=== PATIENT | female | born 1955 | race Caucasian/White ===

== ENCOUNTER 2019-12-24 08:35 | Emergency (ER) | payer BC ==
[~2019-12-24] VITALS: Ht 160 cm; Wt 78.3 kg
[2019-12-24] MEDS ORDERED: VALS80TA (08:45)
[2019-12-24] MEDS ORDERED: HYDR-3713 (08:45)
[2019-12-24] MEDS ORDERED: ZOLP5TAB (08:45)
[2019-12-24] MEDS ORDERED: OMEP-218 (08:45)
[2019-12-24 09:24] LABS: BASO # 0.1 10^3/uL (0.0-0.2); BASO % 0.9 % (0.0-1.0); EOS # 0.1 10^3/uL (0.0-0.5); EOS % 2.5 % (0.0-3.0); HEMATOCRIT 40.4 % (36.0-47.0); HEMOGLOBIN 13.2 g/dl (12.0-15.5); LYMPH # 1.8 10^3/uL (1.5-5.0); LYMPH % 32.2 % (24.0-44.0); MEAN CORPUSCULAR HEMOGLOBIN 32.4 pg (27.0-33.0); MEAN CORPUSCULAR HGB CONC 32.7 g/dl (32.0-36.5); MEAN CORPUSCULAR VOLUME 99.3 fl (80.0-96.0); MONO # 0.5 10^3/uL (0.0-0.8); MONO % 8.2 % (0.0-5.0); NEUTROPHILS # 3.2 10^3/uL (1.5-8.5); PLATELET COUNT, AUTOMATED 265 10^3/uL (150-450); RED BLOOD COUNT 4.07 10^6/uL (4.00-5.40); WHITE BLOOD COUNT 5.6 10^3/uL (4.0-10.0)
[2019-12-24 09:31] LABS: INR 0.98; PROTHROMBIN TIME 12.7 SECONDS (11.8-14.0)
--- NOTE | 2019-12-24 09:37 | REP ---
CHEST, SINGLE VIEW: There is no evidence of acute infiltrate. No pleural effusion is seen. The heart is normal in size. The mediastinal silhouette is unremarkable. The visualized osseous structures are intact. IMPRESSION: No acute pulmonary disease. Electronically Signed by Earl Aguilar MD 12/24/2019 12:51 P
[2019-12-24 09:46] LABS: ALBUMIN 4.4 GM/DL (3.2-5.2); ALT/SGPT 35 U/L (12-78); BILIRUBIN,DIRECT 0.1 MG/DL (0.0-0.2); BILIRUBIN,TOTAL 0.5 MG/DL (0.2-1.0); CK-MB VALUE MASS 1.4 NG/ML (<3.6); CPK CREATINE PHOSPHOKINASE 140 U/L (26-192); LIPASE 81 U/L (73-393); TOTAL PROTEIN 7.4 GM/DL (6.4-8.2); TROPONIN I < 0.02 NG/ML (< 0.10)
[2019-12-24 10:30] LABS: MAGNESIUM LEVEL 1.9 MG/DL (1.8-2.4)
--- NOTE | 2019-12-24 13:30 | ECGEPIP ---
[facility] - ED Test Date: 2019-12-24 Pat Name: SUDHA MAGANA Department: Room: - Gender: Female [employer] Work[employer]: [place] : 1955 Requested By: MIKE Tran Order Number: [id number] Reading MD: Esthela Saarvia Measurements Intervals [place] Rate: 83 P: 20 OH: 155 QRS: 5 QRSD: 105 T: 14 QT: 367 QTc: 432 Interpretive Statements SINUS RHYTHM NO PRIOR Electronically Signed on 12-24-2019 13:30:03 EST by Esthela Saravia
[2019-12-24] MEDS ORDERED: Holter Monitor (13:48)
[2019-12-24 14:05] VITALS: BP 164/94
== END 2019-12-24 14:15 | disposition home or self-care (01) ==
LOC: M ED 08:35
DX: R00.2 Palpitations (principal); I10 Essential (primary) hypertension; E78.5 Hyperlipidemia, unspecified; Z87.442 Personal history of urinary calculi; Z88.0 Allergy status to penicillin; Z79.899 Other long term (current) drug therapy

== ENCOUNTER → 2019-12-24 | Outpatient (CLI) | payer BC ==
[~2019-12-24] MED LIST: HYDR-3713; Holter Monitor; OMEP-218; VALS80TA; ZOLP5TAB
--- NOTE | 2019-12-26 22:45 | HOLTMON ---
[facility] Test Date: 2019-12-24 Pat Name: SUDHA MAGANA Department: Room: - Gender: Female [place] Machine Operator: Desirae Roa/BRET QUILES : 1955 Requested By: MIKE Tran Order Number: [id number] Reading MD: Cristhian Rothman Interpretive Statements Normal sinus rhythm with a maximum heart of 131 bpm noted at 12:21:40 PM and a minimum rate of 71 bpm at 6:56:00 AM. Average heart rat was 91 bpm. No activity reported with the maximum heart rate. No pause. Occasional premature isolated PACs. No supraventricular run. Rare premature isolated PVCs. No ventricular run. Symptoms: Palpitations. No associated arrhythmias. Electronically Signed on 12-26-2019 22:45:22 EST by Cristhian Rothman
== END ==
LOC: M EKG 14:24
PROVIDERS: ATTEND Internal Medicine
DX: R00.2 Palpitations (principal)

== ENCOUNTER → 2020-10-25 | Outpatient (CLI) | payer MEDICARE, OTHER | LOC: M LABSMTC 09:49 | DX: Z20.828 Contact with and (suspected) exposure to other viral communicable diseases (principal) ==

== ENCOUNTER → 2020-12-19 | Outpatient (CLI) | payer SELFPAY | LOC: M LABSMTC 10:09 | PROVIDERS: ATTEND Pediatrics | DX: Z20.822 Contact with and (suspected) exposure to COVID-19 (principal) ==

== ENCOUNTER → 2021-06-07 | Outpatient (CLI) | payer MEDICARE, OTHER ==
[~2021-06-07] MED LIST changes: +AZIT500T5; -OMEP-218; +OMEP-218 PO; +ROSU10TA6 PO; -VALS80TA; +VALS80TA PO; -ZOLP5TAB; +ZOLP5TAB PO
== END ==
LOC: M LABSMTC 11:26
PROVIDERS: ATTEND Anesthesiology
DX: Z01.818 Encounter for other preprocedural examination (principal); Z20.822 Contact with and (suspected) exposure to COVID-19

== ENCOUNTER 2021-06-12 11:55 | Day surgery (SDC) | payer MEDICARE ==
[~2021-06-12] VITALS: Ht 160 cm; Wt 70.3 kg
[~2021-06-12 11:55] MED LIST changes: +NS 1,000 ML IV ONE
[2021-06-12] MEDS ORDERED: fentaNYL 100 MCG/2 ML INJECTION (J3010) As Ordered ONE (13:38)
--- NOTE | 2021-06-12 14:24 | ROOR ---
Patient Name: Annabelle No Procedure Date: 06/12/2021 2:10 PM Date of : 1955 Age: 66 Room: [facility] Gender: Female Note Status: Finalized Procedure: Upper GI endoscopy Indications: Heartburn Providers: Ac Florentino MD Referring MD: Chayito BOCANEGRA MD Requesting Provider: Medicines: Monitored Anesthesia Care Complications: No immediate complications. Procedure: Pre-Anesthesia Assessment: - The heart rate, respiratory rate, oxygen saturations, blood pressure, adequacy of pulmonary ventilation, and response to care were monitored throughout the procedure. The Endoscope was introduced through the mouth, and advanced to the second part of duodenum. The upper GI endoscopy was accomplished without difficulty. The patient tolerated the procedure well. Findings: A single 4 mm semi-sessile polyp with no stigmata of recent bleeding was found in the cardia. The polyp was removed with a jumbo cold forceps. Resection and retrieval were complete. The exam of the stomach was otherwise normal. The examined esophagus was normal. The examined duodenum was normal. Impression: - A single gastric polyp. Resected and retrieved. - Otherwise normal stomach. - Normal esophagus. - Normal examined duodenum. Recommendation: - Await pathology results. - Telephone endoscopist for pathology results in 2 weeks. Procedure Code(s): --- Professional --- 78983, Esophagogastroduodenoscopy, flexible, transoral; with biopsy, single or multiple Diagnosis Code(s): --- Professional --- R12, Heartburn K31.7, Polyp of stomach and duodenum CPT copyright 2019 [employer]. All rights reserved. The codes documented in this report are preliminary and upon policyholder information clerk review may be revised to meet current compliance requirements. Ac Florentino MD Ac Florentino MD 06/12/2021 2:23:36 PM Electronically signed by Ac Florentino MD Number of Addenda: 0 Note Initiated On: 06/12/2021 2:10 PM Estimated Blood Loss: Estimated blood loss: none.
[2021-06-12] MEDS ORDERED: LIDOCAINE 2% 100MG/5ML SDV (FOR ANES.) As Ordered ONE (14:25)
[2021-06-12] MEDS ORDERED: propofoL 200 MG/20 ML VIAL As Ordered ONE (14:25)
[2021-06-12] MEDS ORDERED: GLYCOPYRROLATE INJ 0.2 MG/ML 2 ML VIAL As Ordered ONE (14:29)
--- NOTE | 2021-06-12 14:47 | ROOR ---
Patient Name: Annabelle No Procedure Date: 06/12/2021 2:11 PM Date of : 1955 Age: 66 Room: [facility] Gender: Female Note Status: Finalized Procedure: Colonoscopy Indications: High risk colon cancer surveillance: Personal history of colonic polyps Providers: Ac Florentino MD Referring MD: Chayito BOCANEGRA MD Requesting Provider: Medicines: Monitored Anesthesia Care Complications: No immediate complications. Procedure: Pre-Anesthesia Assessment: - The heart rate, respiratory rate, oxygen saturations, blood pressure, adequacy of pulmonary ventilation, and response to care were monitored throughout the procedure. The Colonoscope was introduced through the anus and advanced to the terminal ileum, with identification of the appendiceal orifice and IC valve. The colonoscopy was somewhat difficult due to a redundant colon. Successful completion of the procedure was aided by applying abdominal pressure. The patient tolerated the procedure well. The quality of the bowel preparation was good. Findings: The perianal and digital rectal examinations were normal. A 5 mm polyp was found in the splenic flexure. The polyp was sessile. The polyp was removed with a cold snare. Resection and retrieval were complete. Multiple small and large-mouthed diverticula were found in the sigmoid colon, transverse colon and ascending colon. The exam was otherwise without abnormality on direct and retroflexion views. Impression: - One 5 mm polyp at the splenic flexure, removed with a cold snare. Resected and retrieved. - Diverticulosis in the sigmoid colon, in the transverse colon and in the ascending colon. - The examination was otherwise normal on direct and retroflexion views. Recommendation: - Repeat colonoscopy in 5 years for surveillance. Procedure Code(s): --- Professional --- 51563, Colonoscopy, flexible; with removal of tumor(s), polyp(s), or other lesion(s) by snare technique Diagnosis Code(s): --- Professional --- K57.30, Diverticulosis of large intestine without perforation or abscess without bleeding K63.5, Polyp of colon Z86.010, Personal history of colonic polyps CPT copyright 2019 [employer]. All rights reserved. The codes documented in this report are preliminary and upon network coordinator review may be revised to meet current compliance requirements. Ac Florentino MD Ac Florentino MD 06/12/2021 2:47:09 PM Electronically signed by Ac Florentino MD Number of Addenda: 0 Note Initiated On: 06/12/2021 2:11 PM Estimated Blood Loss: Estimated blood loss: none.
[2021-06-12 15:10] VITALS: BP 137/85
== END 2021-06-12 15:20 | disposition home or self-care (01) ==
LOC: M OPP 11:55
PROVIDERS: ATTEND Internal Medicine Gastroenterology
DX: Z12.11 Encounter for screening for malignant neoplasm of colon (principal); Z86.010 Personal history of colon polyps; D12.3 Benign neoplasm of transverse colon; K57.30 Diverticulosis of large intestine without perforation or abscess without bleeding; K31.7 Polyp of stomach and duodenum; R12 Heartburn; Z79.899 Other long term (current) drug therapy; Z88.0 Allergy status to penicillin
CPT/HCPCS: 43239; 45385; 88305; J3010

== ENCOUNTER → 2021-07-12 | Outpatient (REF) | payer MEDICARE ==
[~2021-07-12] MED LIST changes: -NS 1,000 ML IV ONE
[2021-07-12 12:26] LABS: C REACTIVE PROTEIN QUANTITATIV < 0.30 MG/DL (0.00-0.30); TOTAL PROTEIN 6.8 GM/DL (6.4-8.2)
[2021-07-12 12:33] LABS: VITAMIN B12 LEVEL 275 PG/ML (247-911)
[2021-07-13 16:12] LABS: Lyme Disease IgG/IgM Antibodie <0.91 ISR (0.00-0.90); Lyme Disease IgM Ab Quantitati <0.80 index (0.00-0.79)
== END ==
LOC: M LAB REF 11:08
PROVIDERS: ATTEND Internal Medicine
DX: G60.9 Hereditary and idiopathic neuropathy, unspecified (principal)

== ENCOUNTER → 2021-07-27 | Outpatient (REF) | payer MEDICARE, OTHER ==
[2021-07-31 13:10] LABS: ANTINUCLEAR ANTIBODIES DIRECT Negative (Negative)
== END ==
LOC: M LAB REF 16:13
PROVIDERS: ATTEND Internal Medicine
DX: G62.9 Polyneuropathy, unspecified (principal)

== ENCOUNTER → 2022-03-11 | Outpatient (CLI) | payer MEDICARE ==
[~2022-03-11] MED LIST changes: +OMEP-173 PO; -OMEP-218 PO
== END ==
LOC: M LABSMTC 11:14
DX: Z42.1 Encounter for breast reconstruction following mastectomy (principal)

== ENCOUNTER → 2022-10-11 | Outpatient (REF) | payer MEDICARE ==
[~2022-10-11] MED LIST changes: +ANAS1TAB2; +HYDR-3490; +HYDR-3713 PO; +MELO10CA2 PO; +NITR100C2
== END ==
LOC: M LAB REF 12:24
PROVIDERS: ATTEND Internal Medicine
DX: N39.0 Urinary tract infection, site not specified (principal)

== ENCOUNTER 2022-10-15 18:24 | Emergency (ER) | payer MEDICARE ==
[~2022-10-15] VITALS: Ht 157.5 cm; Wt 70.5 kg
[2022-10-15 18:24] VITALS: BP 160/90
[~2022-10-15 18:24] MED LIST changes: -ANAS1TAB2; -HYDR-3490; -HYDR-3713 PO; -MELO10CA2 PO; -NITR100C2
[2022-10-15] MEDS ORDERED: NITR100C2 (18:31)
[2022-10-15] MEDS ORDERED: ANAS1TAB2 (18:31)
[2022-10-15] MEDS ORDERED: HYDR-3490 (18:31)
[2022-10-15] MEDS ORDERED: NORCO, ANEXSIA 5/325MG TABLET (HYDROcodone/ACETAMINOPHEN) PO ONE (22:05)
[2022-10-15] MEDS ORDERED: MELO10CA2 PO (22:10)
[2022-10-15] MEDS ORDERED: HYDR-3713 PO (22:10)
== END 2022-10-15 22:25 | disposition home or self-care (01) ==
LOC: M ED 18:24
DX: M23.92 Unspecified internal derangement of left knee (principal); I10 Essential (primary) hypertension; K21.9 Gastro-esophageal reflux disease without esophagitis; Z79.811 Long term (current) use of aromatase inhibitors; Z79.899 Other long term (current) drug therapy; Z88.0 Allergy status to penicillin; Z98.890 Other specified postprocedural states; Z87.442 Personal history of urinary calculi; Z86.39 Personal history of other endocrine, nutritional and metabolic disease; Z87.39 Personal history of other diseases of the musculoskeletal system and connective tissue

== ENCOUNTER → 2022-11-22 | Outpatient (REF) | payer MEDICARE ==
[~2022-11-22] MED LIST changes: +ANAS1TAB2; +HYDR-3490; +HYDR-3713 PO; +MELO10CA2 PO; +NITR100C2
== END ==
LOC: M LAB REF 16:10
PROVIDERS: ATTEND Internal Medicine
DX: N39.0 Urinary tract infection, site not specified (principal)

== ENCOUNTER → 2022-12-16 | Outpatient (CLI) | payer MEDICARE ==
[2022-12-16 11:03] LABS: CORTISOL AM 1.4 UG/DL (4.3-22.4)
[2022-12-16 11:06] LABS: THYROID STIMULATING HORMONE 0.699 uIU/ML (0.55-4.78)
[2022-12-16 11:07] LABS: FREE T4 1.17 NG/DL (0.89-1.76); TOTAL 25(OH) VITAMIN D 36.5 NG/ML (20.0-100.0)
[2022-12-16 14:17] LABS: ALBUMIN 4.2 G/DL (3.2-5.2); ALKALINE PHOSPHATASE 70 U/L (46-116); ALT/SGPT 26 U/L (7.0-40); AST/SGOT 23 U/L (<34); BILIRUBIN,TOTAL 0.6 MG/DL (0.3-1.2); BLOOD UREA NITROGEN 19 MG/DL (9-23); CALCIUM LEVEL 9.7 MG/DL (8.3-10.6); CARBON DIOXIDE LEVEL 27 MMOL/L (20-31); CHLORIDE LEVEL 103 MMOL/L (98-107); CREATININE FOR GFR 0.59 MG/DL (0.55-1.30); GLOMERULAR FILTRATION RATE > 60.0 (>45); GLUCOSE, FASTING 199 MG/DL (74-106); PHOSPHORUS LEVEL 3.1 MG/DL (2.4-5.1); POTASSIUM SERUM 4.1 MMOL/L (3.5-5.1); SODIUM LEVEL 141 MMOL/L (136-145); TOTAL PROTEIN 6.9 G/DL (5.7-8.2)
[2022-12-16 14:29] LABS: PTH INTACT 51.4 PG/ML (18.5-88.0)
== END ==
LOC: M LAB 07:45
PROVIDERS: ATTEND Internal Medicine Endocrinology, Diabetes & Metabolism
DX: M81.0 Age-related osteoporosis without current pathological fracture (principal)

== ENCOUNTER → 2022-12-20 | Outpatient (REF) | payer MEDICARE ==
[2022-12-20 14:35] LABS: CALCIUM, 24 HOUR URINE 113.9 MG/24HR (42-353); CALCIUM, URINE 6.8 MG/DL
== END ==
LOC: M LAB REF 13:26
PROVIDERS: ATTEND Internal Medicine Endocrinology, Diabetes & Metabolism
DX: M81.0 Age-related osteoporosis without current pathological fracture (principal)

== ENCOUNTER → 2023-05-12 | Outpatient (CLI) | payer MEDICARE | LOC: M EKG 11:03 | PROVIDERS: ATTEND Internal Medicine | DX: R00.2 Palpitations (principal); R00.0 Tachycardia, unspecified ==

== ENCOUNTER → 2023-09-25 | Outpatient (CLI) | payer MEDICARE | LOC: M WUC 08:42 | PROVIDERS: ATTEND Internal Medicine | DX: M54.50 Low back pain, unspecified (principal); M81.0 Age-related osteoporosis without current pathological fracture; Z85.3 Personal history of malignant neoplasm of breast; M51.36 Other intervertebral disc degeneration, lumbar region; M47.816 Spondylosis without myelopathy or radiculopathy, lumbar region; Z98.1 Arthrodesis status; M46.1 Sacroiliitis, not elsewhere classified ==

== ENCOUNTER → 2023-09-25 | Outpatient (CLI) | payer MEDICARE ==
[2023-09-25 11:41] LABS: ALBUMIN 4.1 G/DL (3.2-5.2); ALKALINE PHOSPHATASE 58 U/L (46-116); ALT/SGPT 26 U/L (7.0-40); AST/SGOT 25 U/L (<34); BILIRUBIN,TOTAL 0.6 MG/DL (0.3-1.2); BLOOD UREA NITROGEN 20 MG/DL (9-23); CALCIUM LEVEL 9.8 MG/DL (8.3-10.6); CARBON DIOXIDE LEVEL 32 MMOL/L (20-31); CHLORIDE LEVEL 102 MMOL/L (98-107); CREATININE FOR GFR 0.73 MG/DL (0.55-1.30); GLOMERULAR FILTRATION RATE > 60.0 (>45); GLUCOSE, FASTING 109 MG/DL (74-106); PHOSPHORUS LEVEL 4.3 MG/DL (2.4-5.1); POTASSIUM SERUM 3.9 MMOL/L (3.5-5.1); SODIUM LEVEL 141 MMOL/L (136-145); TOTAL PROTEIN 6.8 G/DL (5.7-8.2)
== END ==
LOC: M WUC 08:39
DX: D05.11 Intraductal carcinoma in situ of right breast (principal); M81.0 Age-related osteoporosis without current pathological fracture

== ENCOUNTER → 2024-04-08 | Outpatient (REF) | payer MEDICARE, OTHER ==
[~2024-04-08] MED LIST changes: -ROSU10TA6 PO; +ROSU10TA61 PO
== END ==
LOC: M LAB REF 11:56
PROVIDERS: ATTEND Internal Medicine
DX: G60.9 Hereditary and idiopathic neuropathy, unspecified (principal)

== ENCOUNTER → 2024-04-28 | Outpatient (CLI) | payer MEDICARE | LOC: M RAD 14:58 | PROVIDERS: ATTEND Neurological Surgery | DX: M48.062 Spinal stenosis, lumbar region with neurogenic claudication (principal); M47.816 Spondylosis without myelopathy or radiculopathy, lumbar region; Z98.1 Arthrodesis status; M48.07 Spinal stenosis, lumbosacral region; M43.16 Spondylolisthesis, lumbar region ==

== ENCOUNTER → 2024-05-24 | Outpatient (CLI) | payer MEDICARE | LOC: M RAD 08:16 | PROVIDERS: ATTEND Neurological Surgery | DX: M48.061 Spinal stenosis, lumbar region without neurogenic claudication (principal); M85.88 Other specified disorders of bone density and structure, other site; Z98.1 Arthrodesis status; M47.816 Spondylosis without myelopathy or radiculopathy, lumbar region ==

== ENCOUNTER → 2024-06-02 | Outpatient (REF) | payer MEDICARE ==
[2024-06-02 13:54] LABS: C REACTIVE PROTEIN QUANTITATIV < 0.40 MG/DL (<1.0)
[2024-06-03 14:24] LABS: RHEUMATOID FACTOR QUANT < 3.5 IU/ML (<14)
== END ==
LOC: M LAB REF 12:02
PROVIDERS: ATTEND Internal Medicine
DX: M25.571 Pain in right ankle and joints of right foot (principal); G62.9 Polyneuropathy, unspecified

== ENCOUNTER → 2024-09-27 | Outpatient (CLI) | payer MEDICARE ==
[2024-09-27 08:47] LABS: BLOOD UREA NITROGEN 22 MG/DL (9-23); CALCIUM LEVEL 10.2 MG/DL (8.3-10.6); CARBON DIOXIDE LEVEL 29 MMOL/L (20-31); CHLORIDE LEVEL 104 MMOL/L (98-107); CREATININE FOR GFR 0.68 MG/DL (0.55-1.30); GLOMERULAR FILTRATION RATE > 60.0 (>45); GLUCOSE, FASTING 125 MG/DL (74-106); PHOSPHORUS LEVEL 3.8 MG/DL (2.4-5.1); POTASSIUM SERUM 4.1 MMOL/L (3.5-5.1); SODIUM LEVEL 143 MMOL/L (136-145)
== END ==
LOC: M LAB 07:39
PROVIDERS: ATTEND Internal Medicine Hematology
DX: M81.0 Age-related osteoporosis without current pathological fracture (principal)

== ENCOUNTER → 2025-03-01 | Outpatient (CLI) | payer MEDICARE | LOC: M WHC 10:13 | PROVIDERS: ATTEND Internal Medicine Hematology | DX: Z13.820 Encounter for screening for osteoporosis (principal); M85.832 Other specified disorders of bone density and structure, left forearm ==

== ENCOUNTER → 2025-03-24 | Outpatient (REF) | payer MEDICARE | LOC: M LAB REF 12:20 | PROVIDERS: ATTEND Internal Medicine | DX: M81.0 Age-related osteoporosis without current pathological fracture (principal) ==

== ENCOUNTER → 2025-06-10 | Outpatient (CLI) | payer MEDICARE | LOC: M RAD 12:36 | PROVIDERS: ATTEND Neurological Surgery | DX: M50.00 Cervical disc disorder with myelopathy, unspecified cervical region (principal); M48.062 Spinal stenosis, lumbar region with neurogenic claudication; M51.26 Other intervertebral disc displacement, lumbar region; M43.16 Spondylolisthesis, lumbar region; M47.817 Spondylosis without myelopathy or radiculopathy, lumbosacral region; N28.1 Cyst of kidney, acquired ==

== ENCOUNTER → 2025-09-01 | Outpatient (REF) | payer MEDICARE ==
[~2025-09-01] MED LIST changes: -ZOLP5TAB PO; +ZOLP5TAB9 PO
[2025-09-01 15:10] LABS: INR 0.87
== END ==
LOC: M LAB REF 14:48
PROVIDERS: ATTEND Internal Medicine
DX: Z01.818 Encounter for other preprocedural examination (principal)